=== PATIENT | male | born 1975 | race Asian ===

== ENCOUNTER 2024-10-21 07:57 | Outpatient (CLI) | payer OTHER, SELFPAY ==
--- NOTE | 2024-11-12 21:55 | P.SLEEP_ITS ---
Sleep Study Date of Study: 10/21/24 Ordering Provider: CLARI Crooks Interpreting Physician: Tara Coles MD Sleep Study Type: Split Polysomnogram Height: 1.63 m Weight: 79.379 kg Body Mass Index: 30.0 Neck Circumference (inches): 16 [place]: 11 Reason for Sleep Study Hypersomnolence Sleep History Doug Bañuelos is a 49-year-old man with excessive daytime sleepiness. He has had problems with sleep and feeling tired for at least 10 years, always needing naps on the weekend. There is a family history of sleep problems, his father uses CPAP. He never awakens from sleep feeling short of breath. He never wakes at night with heartburn, belching or coughing.??He constantly snores, and frequently snores loudly enough that others complain. He constantly has trouble sleeping when he has a cold. He never wakes up gasping for breath during the night. He occasionally has breathing problems at night observed by others. He never sweats excessively at night. He never notices his heart pounding or beat ing irregularly during the night. He never falls asleep during the day. He never falls asleep involuntarily, never falls asleep while driving. He never experiences loss of muscle tone with strong emotion. He frequently has daytime difficulty at work due to excessive sleepiness, feels that he does not have mental clarity. He never feels paralyzed on waking or falling asleep. He frequently experiences vivid dreams upon waking or falling asleep. He never feels afraid of going to sleep. He rarely has nightmares. He occasionally recalls his dreams. He rarely has thoughts racing through his mind. He never feels sad or depressed. He rarely feels anxiety. He rarely notices parts of his body jerk. He never kicks during the night. He never feels crawling or aching feelings in his legs. He never feels leg pain at night. He never has morning jaw pain, never grinds his teeth at night. He never feels bothered by pain during the day, never awakened by pain during the night. He never wakes up feeling stiff in the morning, and he never wakes feeling sore or achy. He never awakens with pain in his neck, spine, or joints. He has fatigue and concentration difficulties. Normal bedtime is 10:30 p.m., falling asleep within 2 minutes, waking up to 15 times during the night, mostly for 1-2 minutes,long enough to reposition, roll over and try to return to sleep although he does go to the bathroom once most nights. He takes naps on the weekends, and he feels refreshed after a short 10- 15 minute nap. Naps may last 90 minutes. Habits:??Tobacco: never smoker Caffeine: 2-3 cups of coffee daily Alcohol: none Recreational substances: none [facility] Past Medical History Medical History Normal colonoscopy Shingles Prediabetes Plantar fascial fibromatosis Perirectal abscess Overweight Abnormal liver enzymes Social History Social History Smoking status: Never smoker Medications Home Medications ?Medication ?Instructions ?Recorded ?Confirmed ?Type eszopiclone 2 mg tablet (Lunesta) 2 mg PO ONCE #1 tabl et 08/14/24 08/14/24 Rx Sleep Procedure A split night polysomnogram using the [place] [employer] multi-channel system recorded the standard physiologic parameters including EEG, EOG, submentalis EMG, anterior tibialis EMG, EKG, body position, nasal and oral airflow using nasal pressure sensor and thermistor. Respiratory parameters of chest and abdominal movements were recorded with Respiratory Inductance Plethysmography belts. Oxygen saturation was recorded by pulse oximetry. Video monitoring was also performed. Sleep stages, periodic limb movements, and EEG arousals were scored in 30 second epochs according to the criteria of the AASM Scoring Manual. The Apnea-Hypopnea Index was calculated using CMS guidelines for definition of hypopnea while scoring respiratory events. He self-administered Lunesta 2 mg at the beginning of the study. After the baseline portion the patient met criteria for a titration with an AHI of 16.3 and desaturation to 82% he used a small ResMed AirTouch F20 fullface mask with heated humidity, initial pressure was CPAP 5 cm, titrated to 6 cm, 7 cm, 8 cm, and a final pressure of 9 cm. At CPAP 9 cm, the patient spent 108.5 minutes in bed, 11.5 minutes awake, 57.5 minutes in non-REM, 39.5 minutes in REM. Sleep efficiency was 89.4%. The residual apnea-hypopnea index was 1.9, the lowest saturation was 94%. He had REM in the left lateral position. Sleep Architecture During the diagnostic portion of the study, the total recording time was 244.6 minutes. The total sleep time was 209.5 minutes. Sleep latency was 8.1 minutes. REM latency was 119.0 minutes. Sleep Efficiency was 85.7%. The patient had 16 awakenings for an awakening index of 4.6. Wake after sleep onset time was 27.0 minutes. The patient spent 22.5 minutes, 10.7% of total sleep time in Stage N1. The patient spent 121.0 minutes, 57.8% in Stage N2. The patient spent 43.0 minutes, 20.5% in Stage N3. The patient spent 23.0 minutes, 11.0% in Stage REM sleep. At 02:25:59 AM the patient was placed on PAP treatment. During the treatment portion of the study, the total recording time was 218.1 minutes. The total sleep time was 179.5 minutes. Sleep latency was 7.5 minutes. REM latency was 139.0 minutes. Sleep Efficiency was 82.3%. Wake after Sleep Onset time was 31.5 minutes. The patient spent 37.0 minutes, 20.6% of total sleep time in Stage N1. The patient spent 103.0 minutes, 57.4% in Stage N2. The patient spent no time in Stage N3. The patient spent 39.5 minutes, 22.0% in Stage REM. Respiratory Analysis During the diagnostic portion of the study, the patient had 30 hypopneas, 22 obstructive apneas, no mixed apneas, and 5 central apneas for an overall Apnea Hypopnea Index of 16.3 events per hour. The REM Apnea Hypopnea Index was 78.3. The NREM Apnea Hypopnea Index was 11.3. The patient had a Central Apnea Hypopnea Index of 1.4. There were no Respiratory Effort Related Arousals. The Respiratory Disturbance Index is 22.9 events per hour. There was no evidence of Dong-Son Respirations. During the treatment portion of the study, the patient had 1 hypopnea, 1 obstructive apnea, no mixed apneas, and 5 central apneas for an overall Apnea Hypopnea Index of 2.3 events per hour. The REM Apnea Hypopnea Index was 3.0. The NREM Apnea Hypopnea Index was 2.1. The patient had a Central Apnea Hypopnea Index of 1.7. There were no Respiratory Effort Related Arousals. The Respiratory Disturbance Index is 3.0 events per hour. There was no evidence of Dong-Son Respirations. Arousals During the diagnostic portion of the study, there were a total of 113 arousals for an arousal index of 32.4. There were 40 respiratory arousals for an index of 11.5. There were 17 periodic limb movement arousals for an index of 4.9. There were 5 isolated limb movement arousals for an index of 1.4. There were 41 spontaneous arousals for an index of 11.7. During the treatment portion of the study, there were a total of 103 arousals for an index of 34.4. There were 5 respiratory arousals for an index of 1.7. There were 10 periodic limb movement arousals for an index of 3.3. There were 10 isolated limb movement arousals for an index of 3.3. There were 68 spontaneous arousals for an index of 22.7. Periodic Limb Movements During the diagnostic portion of the study, the patient had 19 isolated limb movements with an index of 5.4. The patient had 52 periodic limb movements with an index of 14.9. The patient had a total of 71 limb movements with a total limb movement index of 20.3. During the treatment portion of the study, the patient had 37 isolated limb movements with an index of 12.4. The patient had 36 periodic limb movements with an index of 12.0. The patient had a total of 73 limb movements with a total limb movement index of 24.4. Oximetry Data During the diagnostic portion of the study, the patient had an average oxygen saturation of 94.5% in wake with a minimum oxygen saturation of 86% and a maximum oxygen saturation of 98%. The patient had an average oxygen saturation of 93.3% in sleep with a minimum oxygen saturation of 82% and a maximum oxygen saturation of 98%. The patient had 75 oxygen desaturations resulting in an Oxygen Desaturation Index of 21.5. The patient spent 3.7 minutes, 1.6% of total sleep time with an oxygen saturation less than 88%. During the treatment portion of the study, the patient had an average oxygen saturation of 96.4% in wake with a minimum oxygen saturation of 92% and a maximum oxygen saturation of 99%. The patient had an average oxygen saturation of 96.3% in sleep with a minimum oxygen saturation of 93% and a maximum oxygen saturation of 99%. The patient had 5 oxygen desaturations resulting in an Oxygen Desaturation Index of 1.7. The patient spent no total sleep time with an oxygen saturation less than 88%. Snoring Profile During the diagnostic portion, snoring was moderate to loud, eliminated at the optimal pressure. Cardiac Profile During the diagnostic portion of the study, the EKG showed normal sinus rhythm. The average pulse rate was 74.7 bpm. The minimum pulse rate was 65 bpm. The maximum pulse rate was 98 bpm. No arrhythmias noted. During the treatment portion of the study, the EKG showed normal sinus rhythm. The average pulse rate was 65.9 bpm. The minimum pulse rate was 54 bpm. The maximum pulse rate was 92 bpm. No arrhythmias noted. EEG Profile Unremarkable, no evidence of seizures. Assessment and Plan Assessment and Plan (1) Obstructive sleep apnea: Code(s): G47.33 - Obstructive sleep apnea (adult) (pediatric) Status: Acute Assessment and Plan: This split night sleep study on 10/21/2024 showed moderate obstructive sleep apnea, the apnea-hypopnea index is 16.3 with desaturation 82% and moderate to loud snoring. He was successfully titrated to CPAP 9 cm using a small ResMed AirTouch F20 fullface mask and heated humidity. At CPAP 9 cm, the patient spent 108.5 minutes in bed, 11.5 minutes awake, 57.5 minutes in non-REM, 39.5 minutes in REM. Sleep efficiency was 89.4%. The residual apnea-hypopnea index was 1.9, the lowest saturation was 94%. He had REM in the left lateral position. The patient should be prescribed this ResMed equipment as well as tubing, filters and reservoir. This should be used with all episodes of sleep. Compliance should be reviewed within 31-90 days of starting therapy for usage greater than 4 hours per night greater than 70% of the nights. The patient should be asked about symptoms such as excessive daytime sleepiness, quality of sleep, decreased nocturia, increased mental functioning such as memory, mood, and concentration. Data The data obtained during this sleep study is adequate for interpretation. Certification This sleep study has been reviewed by a board certified sleep medicine physician.
== END 2024-10-22 06:43 | disposition home or self-care (01) ==
PROVIDERS: Visit Provider Physician Assistant
DX: G47.10 Hypersomnia, unspecified (principal); G47.33 Obstructive sleep apnea (adult) (pediatric)
CPT/HCPCS: 95811